=== PATIENT | male | born 1980 | race Caucasian/White ===

== ENCOUNTER 2020-06-09 10:45 | Emergency (ER) | payer BC ==
[~2020-06-09] VITALS: Ht 182.9 cm; Wt 79.5 kg
[2020-06-09 10:50] VITALS: TEMP 98.3
[2020-06-09] MEDS ORDERED: CEPHALEXIN500 M1 PO (13:02)
[2020-06-09 13:12] VITALS: BP 130/86; PULSE 85
== END 2020-06-09 13:12 | disposition home or self-care (01) ==
LOC: COL.ER 10:45
DX: S71.112A Laceration without foreign body, left thigh, initial encounter (principal); Z23 Encounter for immunization; F17.220 Nicotine dependence, chewing tobacco, uncomplicated; W31.2XXA Contact with powered woodworking and forming machines, initial encounter; Y92.009 Unspecified place in unspecified non-institutional (private) residence as the place of occurrence of the external cause

== ENCOUNTER → 2020-06-22 | Outpatient (CLI) | payer BC ==
[~2020-06-22] MED LIST: CEPHALEXIN500 M1 PO
[2020-06-22 09:58] VITALS: BP 133/89; PULSE 73; TEMP 98.2
== END ==
LOC: COL.ER 09:49
DX: Z48.02 Encounter for removal of sutures (principal)